=== PATIENT | female | born 1960 | race Caucasian/White ===

== ENCOUNTER 2017-12-26 14:37 | Emergency (ER) | payer BC, OTHER ==
[~2017-12-26] VITALS: Ht 160 cm; Wt 55.0 kg
[~2017-12-26 14:37] MED LIST: PANT-47 PO; VERA240C2 PO
[2017-12-26 14:52] VITALS: BP 155/77
[2017-12-26] MEDS ORDERED: ketorolac trometh. 30mg/ml inj. IM ONE (15:15)
[2017-12-26] MEDS ORDERED: CYCL-1 PO (15:18)
[2017-12-26] MEDS ORDERED: IBUP-1985 PO (15:18)
== END 2017-12-26 16:39 | disposition home or self-care (01) ==
LOC: ER 14:38
DX: M54.2 Cervicalgia (principal); M54.5 Low back pain; G89.29 Other chronic pain; Z91.040 Latex allergy status; Z88.5 Allergy status to narcotic agent; Z79.899 Other long term (current) drug therapy; V43.52XA Car driver injured in collision with other type car in traffic accident, initial encounter; Y93.89 Activity, other specified; Y92.89 Other specified places as the place of occurrence of the external cause; Y99.8 Other external cause status
CPT/HCPCS: 72040; 72070; 72100; 96372; 99284; J1885

== ENCOUNTER 2022-11-12 16:43 | Emergency (ER) | payer BC ==
[~2022-11-12] VITALS: Ht 162.6 cm; Wt 55.2 kg
[~2022-11-12 16:43] MED LIST changes: +CYCL-1 PO; +IBUP-1985 PO
[2022-11-12 17:14] LABS: BASOPHILS % (AUTO) 0.5 % (0-1); EOSINOPHILS # (AUTO) 0.1 X10'3 (0-0.9); EOSINOPHILS % (AUTO) 1.5 % (0-6); HEMATOCRIT 43.2 % (35.0-45.0); HEMOGLOBIN 14.8 g/dl (12.0-16.0); LYMPHOCYTES # (AUTO) 1.1 X10'3 (1.1-4.8); LYMPHOCYTES % (AUTO) 22.1 % (21-51); MEAN CORPUSCULAR HEMOGLOBIN 29.5 PG (27.0-31.0); MEAN CORPUSCULAR HGB CONC 34.3 g/dL (33.0-36.5); MEAN CORPUSCULAR VOLUME 86.1 FL (78-98); MEAN PLATELET VOLUME 8.7 FL (7.4-10.4); MONOCYTES # (AUTO) 0.4 X10'3 (0-0.9); MONOCYTES % (AUTO) 8.9 % (2-12); NEUTROPHILS # (AUTO) 3.3 X10'3 (1.8-7.7); PLATELET COUNT 214 X10'3 (140-440); RED BLOOD COUNT 5.01 X10'6 (4.20-5.60); RED CELL DISTRIBUTION WIDTH 13.2 % (11.5-14.5); WHITE BLOOD COUNT 4.9 X10'3 (4.5-11.0)
[2022-11-12 17:28] LABS: ALANINE AMINOTRANSFERASE 13 U/L (12-78); ALBUMIN 3.8 G/DL (3.4-5.0); ALBUMIN/GLOBULIN RATIO 1.1 (1.1-1.5); ALKALINE PHOSPHATASE 66 IU/L (46-116); ANION GAP 8 (8-16); ASPARTATE AMINO TRANSFERASE 23 U/L (10-37); BILIRUBIN,TOTAL 0.6 MG/DL (0.1-1.0); BLOOD UREA NITROGEN 10 MG/DL (7-18); BUN/CREATININE RATIO 10.4 (10.0-20.0); CALCIUM 8.9 MG/DL (8.5-10.1); CHLORIDE 100 MMOL/L (99-107); CREATININE 0.96 MG/DL (0.40-0.90); GLUCOSE 126 MG/DL (70-104); POTASSIUM 3.3 MMOL/L (3.5-5.1); SODIUM 136 MMOL/L (135-145); TOTAL CARBON DIOXIDE 27.6 MMOL/L (24-32); TOTAL PROTEIN 7.4 G/DL (6.4-8.2); eGFR 59 ML/MIN
[2022-11-12 17:38] LABS: PRO BRAIN NATRIURETIC PEPTIDE 68 PG/ML (0-125)
[2022-11-12 19:43] LABS: LIPASE 63 U/L (73-393)
[2022-11-12 20:04] VITALS: TEMP 99.1
[2022-11-12] MEDS ORDERED: iohexol 300mg/ml 100ml inj. ONE (20:20)
--- NOTE | 2022-11-12 20:46 | NUR ---
IV STARTED IN CT-20G RIGHT FOREARM. -VIVI 2030
[2022-11-12 20:59] VITALS: BP 143/89; PULSE 58; RESP 16; O2SAT 97
[2022-11-12] MEDS ORDERED: ketorolac trometh. 30mg/ml inj. IV ONE (22:00)
[2022-11-12] MEDS ORDERED: morphine 4 MG/ML inj SYRINge IV ONE (22:00)
[2022-11-12] MEDS ORDERED: ondansetron/PF 4mg/2ml inj IV ONE (22:00)
[2022-11-12] MEDS ORDERED: potassium chloride 10mEq ER tablet PO SCH (22:15)
[2022-11-12] MEDS ORDERED: ONDA4TAB12 PO (22:24)
[2022-11-12 22:43] LABS: ETHANOL < 10 MG/DL (<10); MAGNESIUM 2.1 MG/DL (1.5-2.4)
== END 2022-11-12 22:55 | disposition home or self-care (01) ==
LOC: ER 16:49
DX: K86.1 Other chronic pancreatitis (principal); G89.29 Other chronic pain; J45.909 Unspecified asthma, uncomplicated; Z98.890 Other specified postprocedural states; Z91.040 Latex allergy status; Z88.5 Allergy status to narcotic agent; Z79.899 Other long term (current) drug therapy
CPT/HCPCS: 36415; 74177; 80053; 80320; 83690; 83735; 83880; 84484; 85025; 93005; 96374; 96375; 99285; J1885; J2270; J2405; J3490; Q9967

== ENCOUNTER 2023-02-05 10:18 | Emergency (ER) | payer BC ==
[~2023-02-05] VITALS: Ht 162.6 cm; Wt 53.4 kg
[~2023-02-05 10:18] MED LIST changes: +ONDA4TAB12 PO
[2023-02-05 10:24] VITALS: BP 154/72; PULSE 94; RESP 16; TEMP 98.4; O2SAT 100
[2023-02-05 11:06] LABS: BILIRUBIN,URINE NEGATIVE (Neg); CLARITY,URINE CLEAR (Clear); COLOR,URINE YELLOW (Yellow); GLUCOSE, URINE NEGATIVE (Neg); KETONES,URINE 15 mg/dl (Neg); LEUKOCYTE ESTERASE ,URINE NEGATIVE (Neg); NITRITES, URINE NEGATIVE (Neg); OCCULT BLOOD,URINE SMALL (Neg); PH,URINE 6.5 (4.8-8.0); PROTEIN,URINE NEGATIVE (Neg); UROBILINOGEN,URINE 0.2 E.U/dL (0.2-1.0)
[2023-02-05 11:10] LABS: UA COLLECTION TYPE CLN CATCH MIDSTREAM
[2023-02-05 11:11] LABS: BACTERIA,URINE NONE SEEN /HPF (Neg); MUCUS STRANDS FEW /LPF (Neg); RBC,URINE 0-2 /HPF (0-2); SQUAMOUS EPITHELIAL CELL,UR FEW /LPF (FEW); WBC,URINE NONE SEEN /HPF (0-4)
[2023-02-05 12:04] LABS: BASOPHILS % (AUTO) 0.2 % (0-1); EOSINOPHILS % (AUTO) 0.1 % (0-6); HEMATOCRIT 44.5 % (35.0-45.0); HEMOGLOBIN 15.1 g/dl (12.0-16.0); LYMPHOCYTES % (AUTO) 12.5 % (21-51); MEAN CORPUSCULAR HEMOGLOBIN 29.4 PG (27.0-31.0); MEAN CORPUSCULAR VOLUME 86.5 FL (78-98); MEAN PLATELET VOLUME 8.7 FL (7.4-10.4); MONOCYTES # (AUTO) 0.2 X10'3 (0-0.9); MONOCYTES % (AUTO) 2.5 % (2-12); NEUTROPHILS # (AUTO) 6.8 X10'3 (1.8-7.7); NEUTROPHILS % (AUTO) 84.7 % (42-75); PLATELET COUNT 277 X10'3 (140-440); RED BLOOD COUNT 5.14 X10'6 (4.20-5.60); RED CELL DISTRIBUTION WIDTH 13.8 % (11.5-14.5)
[2023-02-05 12:22] LABS: ALANINE AMINOTRANSFERASE 15 U/L (12-78); ALBUMIN 4.1 G/DL (3.4-5.0); ALBUMIN/GLOBULIN RATIO 1.2 (1.1-1.5); ALKALINE PHOSPHATASE 65 IU/L (46-116); ANION GAP 9 (8-16); ASPARTATE AMINO TRANSFERASE 20 U/L (10-37); BILIRUBIN,TOTAL 0.7 MG/DL (0.1-1.0); BLOOD UREA NITROGEN 13 MG/DL (7-18); BUN/CREATININE RATIO 15.7 (10.0-20.0); CALCIUM 9.1 MG/DL (8.5-10.1); CHLORIDE 104 MMOL/L (99-107); CREATININE 0.83 MG/DL (0.40-0.90); ETHANOL < 10 MG/DL (<10); GLUCOSE 102 MG/DL (70-104); LIPASE 44 U/L (16-77); POTASSIUM 3.4 MMOL/L (3.5-5.1); SODIUM 140 MMOL/L (135-145); TOTAL CARBON DIOXIDE 26.8 MMOL/L (24-32); TOTAL PROTEIN 7.5 G/DL (6.4-8.2); eCRCL 60 ML/MIN; eGFR 70 ML/MIN
== END 2023-02-05 18:45 | disposition left against medical advice (07) ==
LOC: ER 10:19
DX: R10.9 Unspecified abdominal pain (principal); Z53.21 Procedure and treatment not carried out due to patient leaving prior to being seen by health care provider
CPT/HCPCS: 36415; 80053; 80320; 81001; 83690; 85025; 99281